=== PATIENT | male | born 1965 | race Caucasian/White ===

== ENCOUNTER 2019-10-26 17:25 | Emergency (ER) | payer OTHER, SELFPAY ==
[2019-10-26 17:45] VITALS: BP 130/91; PULSE 88; RESP 16; TEMP 37; O2SAT 99; BMI 23.9
--- NOTE | 2019-10-26 18:03 | ED.SKABFB ---
HPI - Skin/Abscess/Foreign Bdy General Chief complaint: Skin/Abscess/Foreign Body Stated complaint: Hearing aid part stuck in ear Time Seen by Provider: 10/26/19 17:35 Source: patient Mode of arrival: Ambulatory Limitations: no limitations History of Present Illness HPI narrative: 54-year-old male nonsmoker with hypertension presents with a chief complaint of a retained foreign body in his left ear for over 1 month. He states that a portion of his hearing aid has been in there for quite some time and is starting to become irritated. His electrical engineer mep was unable to remove it as were the providers at the walk-in clinic. He denies any discharge nor fever or chills. He denies any chest pain, shortness of breath nor nausea, vomiting or diarrhea. Treatments prior to arrival: none Related Data Home Medications Medication Instructions Recorded Confirmed lisinopril 5 mg PO QDAY #0 10/04/16 Previous Rx's Medication Instructions Recorded cephalexin [Keflex] 500 mg PO Q8H #30 cap 10/06/16 oxycodone 5 mg PO Q4HP PRN #30 tab 10/06/16 Allergies Allergy/AdvReac Type Severity Reaction Status Date / Time bee venom protein (honey bee) Allergy Severe Unverified 08/16/17 11:47 [BEE VENOM PROTEIN (HONEY BEE)] Review of Systems Constitutional Constitutional: Denies chills, Denies fatigue, Denies fever(s), Denies frequent falls, Denies lethargy and Denies weakness Eyes Eyes: Denies change in vision, Denies eye discharge, Denies irritation and Denies loss of vision ENT Ears, Nose, Mouth, and Throat: Denies change in voice, Denies dizziness, Reports otalgia, Denies neck pain, Denies sore throat and Denies throat swelling Cardiovascular Cardiovascular: Denies chest pain, Denies irregular heart rhythm, Denies lightheadedness, Denies palpitations, Denies dyspnea, Denies dyspnea on exertion and Denies orthopnea Respiratory Respiratory: Denies cough, Denies dyspnea, Denies dyspnea on exertion and Denies wheezing Gastrointestinal Gastrointestinal: Denies abdominal pain, Denies change in bowel habits, Denies diarrhea, Denies nausea and Denies vomiting Musculoskeletal Musculoskeletal: Denies neck pain and Denies numbness Integumentary/Breasts Skin/Breast: Denies pruritus, Denies erythema, Denies rash and Denies wounds Neurologic Neurologic: Denies behavioral changes, Denies confusion, Denies dizziness, Denies frequent falls, Denies loss of vision, Denies numbness and Denies weakness Psychiatric Psychiatric: Denies anxiety, Denies behavioral changes, Denies confusion, Denies depression, Denies homicidal ideation and Denies suicidal ideation Endocrine Endocrine: Denies fatigue, Denies flushing and Denies palpitations Hematologic/Lymphatic Hematologic/Lymphatic: Denies easy bruising Allergic/Immunologic Allergic/Immunologic: Denies urticaria, Denies throat swelling and Denies wheezing Patient History Social History Smoking Status: Never smoker Smoking Status: Never smoker alcohol intake frequency: 0-2 drinks per day Substance Use Type: does not use Exam Narrative Exam Narrative: GEN: AOx3 and in mild distress EYES: Pupils are equal, round, and reactive to light and accommodation. Extraoccular muscles are intact bilaterally. There is no subconjunctival hemorrhage or exudate. ENT: soft silicone foreign body in L EAC, easily removed. Minimal erythema of canal. No perforation of TM CHEST: Lungs are clear to auscultation bilaterally and free of wheezes, rales, or rhonchi. Heart rate is regular rhythm, there are no murmurs, clicks, rubs, or gallops. There is no chest wall tenderness. ABD: Abdomen is soft and nontender. There is no guarding or rebound. Bowel sounds are normal in all 4 quadrants. There is no mass or organomegaly. EXT: Full painless ROM of all extremities with no loss of sensation or strength. SKIN: Warm, pink, and dry. No erythema or rash Initial Vital Signs Initial Vital Signs: Vital Signs Temperature 98.6 F 10/26/19 17:45 Pulse Rate 88 10/26/19 17:45 Respiratory Rate 16 10/26/19 17:45 Blood Pressure 130/91 H 10/26/19 17:45 Pulse Oximetry 99 10/26/19 17:45 Course Vital Signs Vital signs: Vital Signs - 8 hr 10/26/19 17:45 Temperature 98.6 F Pulse Rate 88 Respiratory Rate 16 Blood Pressure 130/91 H Pulse Oximetry 99 Discharge Plan Departure Patient Disposition: Home Clinical Impression: Foreign body in ear Qualifiers: Encounter type: initial encounter Laterality: left Qualified Code(s): T16.2XXA - Foreign body in left ear, initial encounter Instructions: DI for Removal of Foreign Body From Ear Activity Restrictions/Additional Instructions: *You have been diagnosed with [remove foreign body Left ear] *What to do: *Take medications as directed *Follow up with your primary care provider in 2-3 days, call for an appointment. Let them know you were seen in the Emergency Department and that we ask that you be seen in follow up. Consider not using your hearing aid for a few days as the tissue appears a bit irritated. *Return to ER if you should have any new, worsening or concerning symptoms Prescriptions: No Action lisinopril 5 MG tablet 5 mg PO QDAY Qty: 0 RF: 0 cephalexin [Keflex] 500 MG capsule 500 mg PO Q8H Qty: 30 RF: 0 oxycodone 5 MG tablet 5 mg PO Q4HP PRNQty: 30 RF: 0 Referrals: Stanley Caballero MD [Primary Care Provider] -
--- NOTE | 2019-10-26 18:16 | PC.NURSE ---
Dr. Walker took out hearing aide prior to assessment
== END 2019-10-26 18:17 | disposition home or self-care (01) ==
PROVIDERS: Emergency Provider Emergency Medicine; PCP Family Medicine
DX: T16.2XXA Foreign body in left ear, initial encounter (principal); I10 Essential (primary) hypertension
CPT/HCPCS: 99281

== ENCOUNTER 2021-02-03 09:56 | Emergency (ER) | payer OTHER, SELFPAY ==
[2021-02-03 10:04] VITALS: BP 158/91; PULSE 52; RESP 16; TEMP 36.7; O2SAT 99; BMI 24.3
--- NOTE | 2021-02-03 10:30 | ED.EYEPROB ---
HPI - Eye Problem General Chief complaint: Eye Problems Stated complaint: eyes blurry/red/painful, losing vision Time Seen by Provider: 02/03/21 10:04 Source: patient Mode of arrival: Ambulatory Limitations: no limitations History of Present Illness HPI Narrative: 55-year-old male nonsmoker with history of hypertension and otherwise healthy presents with a chief complaint of relatively sudden onset bilateral eye pain, redness watering and vision change. He was in his normal state of health this morning, [place] when he states he smelled something funny in the air and soon thereafter developed vision changes as mentioned. He denies any thought of traumatic injury or exposure. He does not wear corrective lenses or contacts. He denies pain with motion of extraocular is and states that his eyes have deep burning achy pain. He denies chest pain or shortness of breath. He has had no fever or chills. He denies upper respiratory complaints such as runny nose, sore throat or cough. Related Data Home Medications Medication Instructions Recorded Confirmed lisinopril 5 mg tablet 5 mg PO QDAY #0 10/04/16 Previous Rx's Medication Instructions Recorded cephalexin 500 mg capsule (Keflex) 500 mg PO Q8H #30 cap 10/06/16 oxycodone 5 mg tablet 5 mg PO Q4HP PRN #30 tab 10/06/16 Review of Systems Review of Systems Narrative: GENERAL: Denies chills, fatigue, malaise, fever, sweats. HEENT: See HPI RESPIRATORY: Denies dyspnea, cough, wheezing, hemoptysis, sputum. CARDIOVASCULAR: Denies chest pain, palpitations, orthopnea, edema, GASTROINTESTINAL: Denies nausea, vomiting, abdominal pain, diarrhea, constipation, melena. : Denies dysuria, frequency, incontinence, hematuria, urinary retention. MUSCULOSKELETAL: denies weakness, joint pain, or bony pain SKIN: Denies rash, skin lesions, or other NEUROLOGIC: Denies weakness, headache, numbness, change in speech, confusion, seizures, incoordination. PSYCHIATRIC: No concerning psychosocial issues. 12 point review of systems is negative except for those stated above Patient History Social History Smoking Status: Never smoker Smoking Status: Never smoker alcohol intake frequency: 0-2 drinks per day Substance Use Type: does not use Exam Narrative Exam Narrative: GENERAL: [55 year old patient appears stated age. Well-developed patient, in mild distress. HEAD: Atraumatic. Normocephalic. EYES: Pupils equal round and reactive. Extraocular motions intact and painless. Eyes are injected bilaterally and tearing. Visual acuities noted in nurse's chart (OS 20/10, OD can't see, OU can't see). Patient had some improvement in symptoms after use of proparacaine. Fluorescein instilled in both eyes and no evidence of dye uptake, abrasion, laceration, ulceration. Lui-Pen notes pressure in right eye of 35 mm Hg, 14 mmHg and left eye. Patient is able to see and accurately identify the number of fingers in each of the 4 quadrants when evaluated in visually. No significant abnormal findings on funduscopic exam ENT: Nose without bleeding, purulent drainage. Throat without erythema, tonsillar hypertrophy or exudate. Airway patent. NECK: Trachea midline. Non tender CARDIOVASCULAR: Regular rate and rhythm without murmurs, gallops, or rubs. RESPIRATORY: Clear to auscultation. Breath sounds equal bilaterally. No wheezes, rales, or rhonchi. GASTROINTESTINAL: Abdomen soft, non-tender, nondistended. EXTREMITIES: No edema or joint tenderness. BACK: Nontender without deformity or crepitance. No flank tenderness. NEURO: AOx3. SKIN: No rash or erythema of visible areas Initial Vital Signs Initial Vital Signs: Vital Signs Temperature 98.1 F 02/03/21 10:04 Pulse Rate 52 L 02/03/21 10:04 Respiratory Rate 16 02/03/21 10:04 Blood Pressure 158/91 H 02/03/21 10:04 Pulse Oximetry 99 02/03/21 10:04 Course Course Course Narrative: After measurements of right ocular pressure of 35 a diamox and timolol were ordered and call placed to ophthalmology. Dr. Gale request that I send the patient directly to his office and send the medications with him but do not administer them until his exam. Patient understands and is in agreement with the plan and diagnosis. Orders Ordered: Timolol Maleate (Timolol 0.5% Ophth) 1 drops EYE-RIGHT DAILY BALTAZAR Discontinued Medications Acetazolamide (Acetazolamide 250 Mg Tablet) 500 mg PO NOW ONE Stop: 02/03/21 11:21 Fluorescein Sodium (Fluorescein 1 Mg Strip) 1 mg EYE-RIGHT NOW ONE Stop: 02/03/21 10:56 Last Admin: 02/03/21 11:04 Dose: 1 mg Documented by: Proparacaine HCl (Proparacaine 0.5% Ophth Carline) 1 drops EYE-RIGHT NOW ONE Stop: 02/03/21 10:56 Last Admin: 02/03/21 11:03 Dose: 1 drop Documented by: Vital Signs Vital signs: Vital Signs - 8 hr 02/03/21 10:04 Temperature 98.1 F Pulse Rate 52 L Respiratory Rate 16 Blood Pressure 158/91 H Pulse Oximetry 99 Discharge Plan Departure Patient Disposition: Home Clinical Impression: Alteration in vision, ACG (angle-closure glaucoma) Activity Restrictions/Additional Instructions: Please present directly to Dr. Gale' office for complete ophtho exam as we discussed Prescriptions: No Action lisinopril 5 MG tablet 5 mg PO QDAY Qty: 0 RF: 0 cephalexin [Keflex] 500 MG capsule 500 mg PO Q8H Qty: 30 RF: 0 oxycodone 5 MG tablet 5 mg PO Q4HP PRNQty: 30 RF: 0 Referrals: Justino Gale MD [Physician] - Stanley Caballero MD [Primary Care Provider] -
[2021-02-03] MEDS: PROPARACAINE 0.5% OPHTH SOL 1 DROPS EYE-RIGHT (11:03)
[2021-02-03] MEDS: FLUORESCEIN 1 MG STRIP EYE-RIGHT (11:04)
[2021-02-03] MEDS: TIMOLOL 0.5% OPHTH 1 DROPS EYE-RIGHT (11:34)
[2021-02-03] MEDS: acetaZOLAMIDE 250 MG TABLET 500 MG PO (11:35)
[2021-02-03 11:40] VITALS: BP 172/93; PULSE 44; RESP 16; O2SAT 100
== END 2021-02-03 11:45 | disposition home or self-care (01) ==
PROVIDERS: Emergency Provider Emergency Medicine; PCP Family Medicine
DX: H40.20X0 Unspecified primary angle-closure glaucoma, stage unspecified (principal); H54.7 Unspecified visual loss
CPT/HCPCS: 99283